=== PATIENT | female | born 1995 | race Caucasian/White ===

== ENCOUNTER 2018-01-26 15:53 | Emergency (ER) | payer OTHER ==
[~2018-01-26] VITALS: Ht 160 cm; Wt 92.7 kg
[2018-01-26 16:26] LABS: BASOPHIL (%) 0.5 % (0-1); BASOPHIL COUNT 0.1 K/uL (0-0.1); EOSINOPHIL (%) 2.2 % (0-5); EOSINOPHIL COUNT 0.3 K/uL (0-0.3); HEMATOCRIT 46.5 % (36.0-46.0); HEMOGLOBIN 15.8 G/DL (11.9-15.5); IMMATURE GRANULOCYTE (%) 0.5 % (0.0-0.7); LYMPHOCYTE (%) 30.1 % (15-42); LYMPHOCYTE COUNT 4.5 K/uL (1.0-2.8); MCH 30.1 PG (29.0-34.0); MCV 88.6 FL (83-99); MONOCYTE (%) 5.9 % (3-12); MONOCYTE COUNT 0.9 K/uL (0-0.8); NEUTROPHIL (%) 60.8 % (45-76); PLATELET COUNT 334 K/uL (156-360); RBC DIS.WIDTH-SD 39.2 % (39-53); RED BLOOD COUNT 5.25 M/uL (3.80-5.20); WHITE BLOOD COUNT 14.9 K/uL (4.1-10.2)
[2018-01-26 16:34] LABS: CHLORIDE 108 mEq/L (99-109); POTASSIUM 4.1 mEq/L (3.7-5.4); SODIUM 140 mEq/L (136-147)
[2018-01-26 16:36] LABS: GLUCOSE 118 mg/dL (70-99)
[2018-01-26 16:39] LABS: SERUM ETHYL ALCOHOL < 10 mg/dL
[2018-01-26 16:40] LABS: CREATININE 0.8 mg/dL (0.6-1.3)
[2018-01-26 16:41] LABS: UREA NITROGEN (BUN) 10 mg/dL (9-23)
[2018-01-26 16:42] LABS: GFR ESTIMATE (CALCULATED) > 59 mL/min/
[2018-01-26 16:48] LABS: QUANTITATIVE HCG < 4.0 MIU/ML
[2018-01-26 17:55] LABS: AMPHETAMINE NEGATIVE (500 ng/mL); BARBITURATES NEGATIVE (200 ng/mL); BENZODIAZEPINES NEGATIVE (150 ng/mL); BUPRENORPHINE NEGATIVE (10 ng/mL); COCAINE NEGATIVE (150 ng/mL); METHADONE NEGATIVE (200 ng/mL); METHAMPHETAMINE NEGATIVE (500 ng/mL); OPIATES (MORPHINE) NEGATIVE (100 ng/mL); OXYCODONE NEGATIVE (100 ng/mL); PHENCYCLIDINE NEGATIVE (25 ng/mL); PROPOXYPHENE NEGATIVE (300 ng/mL); THC CANNABINOIDS NEGATIVE (50 ng/mL); TRICYCLIC ANTIDEPRESSANTS NEGATIVE (300 ng/mL)
[2018-01-26 18:53] VITALS: BP 129/78
== END 2018-01-26 19:14 | disposition home or self-care (01) ==
LOC: EME 15:53
PROVIDERS: Emergency Medicine
DX: F32.9 Major depressive disorder, single episode, unspecified (principal); Z04.6 Encounter for general psychiatric examination, requested by authority; E28.2 Polycystic ovarian syndrome; F41.9 Anxiety disorder, unspecified; F17.200 Nicotine dependence, unspecified, uncomplicated
CPT/HCPCS: 80048; 84702; 85025; 90837; 99281; 99284; G0480

== ENCOUNTER 2018-03-03 16:06 | Inpatient (IN) | payer OTHER ==
[~2018-03-03] VITALS: Ht 162.6 cm; Wt 94.0 kg
[2018-03-03 18:15] LABS: AMPHETAMINE NEGATIVE (500 ng/mL); BARBITURATES NEGATIVE (200 ng/mL); BENZODIAZEPINES NEGATIVE (150 ng/mL); BUPRENORPHINE NEGATIVE (10 ng/mL); COCAINE NEGATIVE (150 ng/mL); METHADONE NEGATIVE (200 ng/mL); METHAMPHETAMINE NEGATIVE (500 ng/mL); OPIATES (MORPHINE) NEGATIVE (100 ng/mL); OXYCODONE NEGATIVE (100 ng/mL); PHENCYCLIDINE NEGATIVE (25 ng/mL); PROPOXYPHENE NEGATIVE (300 ng/mL); THC CANNABINOIDS NEGATIVE (50 ng/mL); TRICYCLIC ANTIDEPRESSANTS NEGATIVE (300 ng/mL)
[2018-03-03 19:18] LABS: HEMATOCRIT 43.2 % (36.0-46.0); MCH 30.5 PG (29.0-34.0); MCHC 34.7 G/DL (30.0-36.0); PLATELET COUNT 337 K/uL (156-360); RBC DIS.WIDTH-SD 38.5 % (39-53); RED BLOOD COUNT 4.91 M/uL (3.80-5.20); WHITE BLOOD COUNT 17.2 K/uL (4.1-10.2)
[2018-03-03 19:19] LABS: CHLORIDE 107 mEq/L (99-109); POTASSIUM 4.4 mEq/L (3.7-5.4)
[2018-03-03 19:20] LABS: SODIUM 143 mEq/L (136-147)
[2018-03-03 19:21] LABS: GLUCOSE 115 mg/dL (70-99)
[2018-03-03 19:24] LABS: SERUM ETHYL ALCOHOL < 10 mg/dL
[2018-03-03 19:25] LABS: CREATININE 0.8 mg/dL (0.6-1.3); GFR ESTIMATE (CALCULATED) > 59 mL/min/
[2018-03-03 19:26] LABS: UREA NITROGEN (BUN) 11 mg/dL (9-23)
[2018-03-03 19:34] LABS: QUANTITATIVE HCG < 4.0 MIU/ML
[2018-03-03 20:05] VITALS: BP 131/74
[2018-03-03] MEDS ORDERED: ABILIFY2 MG PO (20:33)
[2018-03-03] MEDS ORDERED: TRAZODONE HCL50 MG PO (20:33)
[2018-03-03] MEDS ORDERED: LEXAPRO20 MG PO (20:33)
[2018-03-03] MEDS ORDERED: ZANTAC150 MG PO (20:36)
[2018-03-04 08:04] VITALS: BP 146/51
[2018-03-04 16:32] VITALS: BP 115/56
[2018-03-05 07:53] VITALS: BP 114/57
[2018-03-05 15:57] VITALS: BP 120/71
[2018-03-06 07:54] VITALS: BP 100/57
[2018-03-06] MEDS ORDERED: LEXAPRO20 MG PO (08:33)
[2018-03-06] MEDS ORDERED: TRAZODONE HCL50 MG PO (08:33)
[2018-03-06] MEDS ORDERED: ARIPIPRAZOLE5 MG PO (08:33)
== END 2018-03-06 13:15 | disposition home or self-care (01) | DRG 880 ==
LOC: EME 16:06 → EDOF 18:31 → 1WEST 18:31 → ENRESERV 19:59 → 1WEST 19:59
PROVIDERS: Emergency Medicine
DX: F41.8 Other specified anxiety disorders (principal); F60.3 Borderline personality disorder; R45.851 Suicidal ideations; F17.200 Nicotine dependence, unspecified, uncomplicated; Z59.0 Homelessness; Z91.5 Personal history of self-harm
CPT/HCPCS: 80048; 84702; 85027; 90837; 97150 GO; 97165 GO; 99281; 99285; G0480